=== PATIENT | female | born 1980 | race Caucasian/White ===

== ENCOUNTER 2016-02-22 08:18 | Inpatient (IN) | payer BC ==
[2016-02-22] MEDS ORDERED: LACTATED RINGERS 1,000 ML IV PRN (08:39)
[2016-02-22] MEDS ORDERED: PENICILLIN G POTASSIUM 5 MMU in NS 0.9% (MINI-BAG PLUS) 100 ML IV ONE (08:39)
[2016-02-22] MEDS ORDERED: LACTATED RINGERS 1,000 ML IV SCH (08:45)
[2016-02-22] MEDS ORDERED: LIDOCAINE 1% (PRES FREE) 30 ML VIAL ONE (08:47)
[2016-02-22] MEDS ORDERED: OXYTOCIN 10 UNITS/ML VIAL ONE (08:47)
[2016-02-22] MEDS ORDERED: LIDOCAINE Viscous 2% 15 ML UDCUP ONE (08:47)
[2016-02-22] MEDS ORDERED: MINERAL OIL 25 ML BOT ONE (08:47)
[2016-02-22] MEDS ORDERED: PUMP TUBING ONE (08:47)
[2016-02-22] MEDS ORDERED: OXYTOCIN IN LR 0 ML IV ONE (08:48)
[2016-02-22] MEDS ORDERED: LANOLIN 50 APPLIC/7G TUBE TP PRN (10:00)
[2016-02-22] MEDS ORDERED: MEASLES,MUMPS&RUBELLA VACCINE 0.5 ML VIAL SUB-Q V ONE (10:00)
[2016-02-22] MEDS ORDERED: LACTATED RINGERS 1,000 ML IV.SOLN ONE (10:00)
[2016-02-22] MEDS ORDERED: BENZOCAINE/MENTHOL 60 APPLIC/BOT TP PRN (10:00)
[2016-02-22] MEDS ORDERED: ACETAMINOPHEN 325 MG TABLET PO PRN (10:00)
[2016-02-22] MEDS ORDERED: CALCIUM CARBONATE 500 MG TAB.CHEW PO PRN (10:00)
[2016-02-22] MEDS ORDERED: IV START KIT ONE (10:00)
[2016-02-22] MEDS ORDERED: DOCUSATE SODIUM 100 MG CAPSULE PO PRN (10:00)
[2016-02-22] MEDS ORDERED: FLU VACC 2016-17 (36MO-64Y)/PF 60 MCG/0.5 ML SYRINGE IM V ONE (10:06)
[2016-02-22] MEDS: IBUPROFEN 800 MG TABLET PO SCH ×4 (10:17→23:45)
--- NOTE | 2016-02-22 11:06 | PCMDEL ---
Delivery Note - Labor 1st stage (hr/min):: 2h25m 2nd stage (hr/min):: 0h6m 3rd stage (hr/min):: 0h7m Total (hr/min):: 2h38m Pushed (hr/min):: 0h6m - Delivery Delivery (Date): 02/22/16 Delivery (Time): 09:01 Gender: Male Weight: 9 lb 2 oz Presentation: Cephalic Position: OA Umbilical Cord: 3 Vessel Delayed Cord Clamping:: > 3 min 1 Minute Total: 9 5 Minute Total: 9 Placenta:: Intact, spontaneous, Caden, 3vc EBL:: 250 Perineum:: intact Suture:: none Anesthesia/Meds:: none Length ROM:: 0m Comments:: Suellen arrived at [facility] in active labor at 7/100/0 shortly followed with urge to push. She desired PCN antibiotic prophylaxis but given urge to push and anticipation of precipitous , IV was not placed. She was moved to stool supported by Josue and her rural mail contractor, and with spontaneous urge to push she achieved of vigorous male over intact perineum. delivered OA, shoulders delivered without issue. Apgars 9/9, placed immediately skin to skin. Delayed cord clamping until cessation of pulsing, cut by dad. minimal cord blood collected due to fast spontaneous delivery of intact placenta , caden. Trailing membranes delivered with ring forceps. 3vc. Pt declined AMTSL. Fundus firm mideline U/-1. natural hemostasis. EBL 250ml. Mom and baby stable.
--- NOTE | 2016-02-22 11:06 | PCMAN ---
OB Admission Note - History : 3 Term: 2 : 0 Abortions (S&E): 0 Livin EDC:: 02/21/16 Gestational Age (weeks): 40 Days (#/7): 1 Admit Cervical Dilation:: 7 Admit Cervical Effacement (%):: 100 Admit Station:: -1 Admit Presentaton:: Cephalic Membrane Status: Intact Membranes Comment:: Intact Labor Onset (Date): 02/22/16 Labor Onset (Time): 06:30 Contractions: Yes Contraction Frequency:: q 3-4min Heart Rate:: 155 (by IA) EFW:: 9.5lb Summary of Course:: Patient arrived in active labor with urge to push. Note completed after . complicated by elevated BMI 40.7, hx hydrops that resolved with 2nd child, hx macrosomic infant and possible shoulder dystocia, hx anxiety. Otherwise not complicated. Onset to care at [id number]. TWG 19lbs. GBS pos - Labs Blood Type: O (+) positive Hct/Hgb:: 11.9 Rubella Status: Non-immune GBS Status: Positive Other Labs:: 1hr GTT 136 - Review of Systems ros neg - Physical Exam General: Afebrile Psych/Mental Status: Mood/Affect Appropriate (Active labor), Judgment/Insight Intact Neurological: Alert, Oriented x 4, Normal Gait, Normal Speech Genitourinary: Normal Female Genitalia - Problems (1) Active labor at term Status: Acute Code: [id number] Assessment/Plan: O: Abbreviated exam due to urge to push. A: with IUP at 40w1d Active labor membranes intact, GBS pos FHR: 150, no increases P: Admit to FBC Attempt IV and PCN prophylaxis Anticipate precipitous
[2016-02-22] MEDS: HYDROCODONE/ACETAMINOPHEN 5/325MG TABLET PO PRN ×3 (12:27→20:42)
[2016-02-22] MEDS ORDERED: PENICILLIN G 3 MIL UNIT PREMIX 3 MMU in Premix (D5W) 50 ml 1 EACH IV SCH (12:45)
[2016-02-22 13:30] VITALS: BMI 96.4
[2016-02-22] MEDS: PRENATAL VIT/FE FUMARATE/FA 1 TABLET PO SCH (20:43)
[2016-02-23] MEDS: HYDROCODONE/ACETAMINOPHEN 5/325MG TABLET PO PRN ×5 (02:03→22:23)
[2016-02-23] MEDS: IBUPROFEN 800 MG TABLET PO SCH ×5 (05:04→20:05)
--- NOTE | 2016-02-23 09:43 | PDOC44 ---
- Subjective Day: 1 Pt is feeling well. She is still taking in the experience. It went much faster than she had expected and was unable to get an epidural which was her planned method of pain management. She is thrilled with Moy and enjoying skin-to skin time together. Reports Flatus, Reports Pain Tolerable (taking [place]), Reports ( initial latch is slightly pinchy, but subsides as infant draws the nipple back.) , Reports Lochia Light, Reports Tolerating Regular Diet - Objective Temp Pulse Resp BP Pulse Ox 98.1 F 71 16 119/69 02/23/16 02:04 02/23/16 02:04 02/23/16 02:04 02/23/16 02:04 Current Medications Generic Name Dose Route Start Last Admin Trade Name Freq PRN Reason Stop Dose Admin Acetaminophen 325 - 650 mg 02/22/16 10:00 Tylenol PO Q4H PRN Pain (Mild) Acetaminophen/Hydrocodone Bitart 1 - 2 tab 02/22/16 10:00 02/23/16 08:31 [place] 5/325 PO 1 tab Q4H PRN Administration Pain (Moderate) Benzocaine/Menthol 1 applic 02/22/16 10:00 Dermoplast TP PRN PRN Patient Comfort Calcium Carbonate/Glycine 500 - 1,000 mg 02/22/16 10:00 Tums PO BID PRN Indigestion Docusate Sodium 100 mg 02/22/16 10:00 Colace PO DAILY PRN Comfort/CONSTIPATION Emollient Ointment 1 applic 02/22/16 10:00 [id number] TP PRN PRN sore nipples Ibuprofen 800 mg 02/22/16 10:00 02/23/16 06:29 Motrin PO 800 mg Q6H JENY Administration Multivi/Iron Carb/Fe Sulf/FA/Prenat 1 tab 02/22/16 21:00 02/22/16 20:43 Plus PO 1 tab BEDTIME JENY Administration Sodium Chloride 10 ml 02/22/16 10:00 Normal Saline 10ml Flush IV PRN PRN IV Flush Sodium Chloride 10 ml 02/22/16 17:00 02/23/16 02:04 Normal Saline 10ml Flush IV Not Given Q8HR JENY - Physical Exam General: Afebrile Psych/Mental Status: Mood/Affect Appropriate, Judgment/Insight Intact, Bonding Well Neurological: Grossly Intact, Alert, Oriented x 4 HEENT: Atraumatic Lungs: Clear to Auscultation Bilaterally Cardiovascular: Regular Rate and Rhythm, Normal S1, Normal S2 Breast: Soft, Skin intact Fundus: Firm, Below Umbilicus Genitourinary: Normal Female Genitalia Lochia: Light Extremities: Full ROM Skin: Normal Color - Problems:Assessment/Plan (1) (normal spontaneous vaginal delivery) Status: Acute (2) care following vaginal delivery Status: Acute Assessment/Plan: A: delivered on 02/21 at 40w 1d PP day 1 Normal PP recovery Lochia apporpriate Pain well-controlled GBS pos without adequate prophylaxis successfully Hx PP anxiety P: Plan for DC to home tomorrow after 48 hours of obs due to inadequate PCN prophylaxis for GBS+ status Discussed scheduled stool softener since she is using narcotics for pain management Reviewed risk for PP depresion/anxiety and encouraged to seek care quickly if symptoms emerge to assist with latch and positioning for BF Midwifery 'After the ' handout given to patient. Plans condoms and vasectomy for PP control.
[2016-02-23] MEDS: PRENATAL VIT/FE FUMARATE/FA 1 TABLET PO SCH (20:05)
[2016-02-24] MEDS: IBUPROFEN 800 MG TABLET PO SCH ×3 (01:09→09:00)
[2016-02-24] MEDS: HYDROCODONE/ACETAMINOPHEN 5/325MG TABLET PO PRN ×2 (03:08→08:02)
[2016-02-24 09:11] VITALS: BP 129/57
--- NOTE | 2016-02-24 16:30 | PDOC39B ---
Hospital Course: ADMIT DATE: 02/22/16 DISCHARGE DATE: 02/23/16 ADMISSION DIAGNOSES: Active Labor PROCEDURES: HISTORY OF PRESENT ILLNESS: 35 year old G3 T2 L2 at 40 weeks 1 days presenting with active labor. HOSPITAL COURSE: The patient is ambulating and voiding without difficulty. Pain well managed with PO meds. Bleeding getting soap maker. going okay; infant still drowsy and not very vigorous at breast. Good experience her two other children. Reports good support from partner and family going home. By day of discharge the patient is stable, well and ready to go home. - Physical Exam Vital Signs: Temp Pulse Resp BP Pulse Ox 97.7 F 83 16 129/57 02/24/16 07:45 02/24/16 07:45 02/24/16 07:45 02/24/16 07:45 General: Afebrile Psych/Mental Status: Mood/Affect Appropriate, Judgment/Insight Intact Breast: Soft, Skin intact, Nipples Intact, No Tenderness, No Erythema Fundus: Firm, Midline, Below Umbilicus Genitourinary: Normal Female Genitalia, No Edema Extremities: Full ROM, No Edema Skin: Normal Color, Warm, Dry - Discharge Plan Disposition: Home Instruction Forms: Vaginal Discharge Instructions Additional Instructions: Handout given and reviewed Prescriptions: Ibuprofen [Motrin] 800 mg PO Q6H PRN #60 tablet PRN Reason: Pain Hydrocodone Bit/Acetaminophen [[place] 5/325] 1 - 2 tab PO Q4H PRN #14 tablet PRN Reason: Pain Follow-Up: Domi Silva CNM [Certified Nurse [employer] [place] [employer]] - 03/09/16 4:00 pm
== END 2016-02-24 12:25 | disposition home or self-care (01) | DRG 775 ==
LOC: SUATTDRO 08:18 → FBCOUT 08:18 → FBC 08:19
PROVIDERS: ADMIT Advanced Practice Midwife; ATTEND Advanced Practice Midwife
PROC: 10E0XZZ Delivery of Products of Conception, External Approach (ICD-10-PCS; principal; 2016-02-22)
DX: O62.3 Precipitate labor (principal); Z68.41 Body mass index [BMI] 40.0-44.9, adult; O99.824 Streptococcus B carrier state complicating childbirth; O99.214 Obesity complicating childbirth; Z3A.40 40 weeks gestation of pregnancy; Z37.0 Single live birth

== ENCOUNTER 2016-03-19 10:06 | Outpatient (CLI) | payer BC | END 2016-03-19 10:07 | disposition home or self-care (01) | LOC: BABIESSH 10:06 | PROVIDERS: ATTEND Registered Nurse | DX: Z39.1 Encounter for care and examination of lactating mother (principal) ==

== ENCOUNTER 2016-04-22 15:01 | Outpatient (CLI) | payer BC | END 2016-04-22 15:02 | disposition home or self-care (01) | LOC: BABIESSH 15:01 | PROVIDERS: ATTEND Advanced Practice Midwife | DX: Z39.1 Encounter for care and examination of lactating mother (principal) ==

== ENCOUNTER 2016-04-29 15:45 | Outpatient (CLI) | payer BC | END 2016-04-29 15:46 | disposition home or self-care (01) | LOC: BABIESSH 15:45 | PROVIDERS: ATTEND Advanced Practice Midwife | DX: Z39.1 Encounter for care and examination of lactating mother (principal) ==